=== PATIENT | female | born 1960 | race Caucasian/White ===

== ENCOUNTER 2017-09-18 08:59 | Emergency (ER) | payer OTHER, MEDICAID | END 2017-09-18 10:09 | disposition home or self-care (01) | LOC: FTE 08:59 | DX: J06.9 Acute upper respiratory infection, unspecified (principal); Z87.891 Personal history of nicotine dependence | CPT/HCPCS: 99284; Z7502 ==

== ENCOUNTER 2017-09-30 08:41 | Emergency (ER) | payer OTHER | END 2017-09-30 11:00 | disposition home or self-care (01) | LOC: FTE 08:41 | DX: J02.9 Acute pharyngitis, unspecified (principal); F17.210 Nicotine dependence, cigarettes, uncomplicated | CPT/HCPCS: 87880; 99283 ==